=== PATIENT | female | born 1955 | race Hispanic/Latino ===

== ENCOUNTER 2016-12-02 10:22 | Emergency (ER) | payer MEDICARE, OTHER ==
[2016-12-02 10:46] VITALS: BP 104/74; PULSE 84; RESP 19; TEMP 98.1; O2SAT 99; BMI 25.7
--- NOTE | 2016-12-02 10:50 | ED PDOC ---
Arrival/HPI - General Chief Complaint: Eye Problem Time Seen by Provider: 12/02/16 10:49 Historian: Patient - History of Present Illness Narrative History of Present Illness (Text): 12/02/16 10:49 61 y/o female, last tetanus under 5 years ago, wears contact and glassess, c/o lt. eye foreign body sensation x 1 day. Pt. stated that she feels there is foreign body sensation the left eye, feels the contact is still attach to the left eye, been trying to rubbing it and peeling it off, no change in vision, admits tearing, no headache or night sweat, no dizziness, no chest pain or shortness of breath, no other medical or psychological complaints. Past Medical History - Provider Review Nursing Documentation Reviewed: Yes - Infectious Disease Hx of Infectious Diseases: None - Tetanus Immunization Tetanus Immunization: Unknown - Reproductive Menopause: Yes - Past Medical History Past Medical History: No Previous - Cardiac Hx Cardiac Disorders: No - Pulmonary Hx Respiratory Disorders: Yes Hx Asthma: Yes - Neurological Hx Neurological Disorder: No - HEENT Hx HEENT Disorder: No - Renal Hx Renal Disorder: No - Endocrine/Metabolic Hx Endocrine Disorders: No - Hematological/Oncological Hx Blood Disorders: No - Integumentary Hx Dermatological Disorder: No - Musculoskeletal/Rheumatological Hx Musculoskeletal Disorders: Yes Hx Herniated Disk: Yes - Gastrointestinal Hx Gastrointestinal Disorders: No - Genitourinary/Gynecological Hx Genitourinary Disorders: No - Psychiatric Hx Psychophysiologic Disorder: Yes Hx Anxiety: Yes Hx Depression: Yes Hx Emotional Abuse: No Hx Physical Abuse: No Hx Substance Use: No - Surgical History Hx Hysterectomy: Yes Hx Musculoskeletal Surgery: Yes Other/Comment: lap band, herniated disc repair, fibroids removed. - Anesthesia Hx Anesthesia: Yes Hx Anesthesia Reactions: No - Suicidal Assessment Feels Threatened In Home Enviroment: No Family/Social History - Physician Review Nursing Documentation Reviewed: Yes Family/Social History: Unknown Family HX Smoking Status: Current Some Days Smoker Hx Alcohol Use: Yes Frequency of alcohol use: Socially Hx Substance Use: No Allergies/Home Meds Allergies/Adverse Reactions: Allergies No Known Allergies Allergy (Verified 12/02/16 10:33) Home Medications: Home Meds Medication Instructions Recorded Confirmed Alprazolam [Xanax] 4 mg PO TID 11/13/14 12/02/16 Naproxen [Naprosyn] 250 mg PO DAILY 11/13/14 12/02/16 Solifenacin Succinate [Vesicare] 5 mg PO DAILY 11/13/14 12/02/16 Tramadol Hydrochloride [Tramadol] 50 mg PO DAILY 11/13/14 12/02/16 Zolpidem Tartrate [Ambien] 5 mg PO DAILY 11/13/14 12/02/16 Review of Systems - Review of Systems Constitutional: absent: Fatigue, Fevers Eyes: Other (lt. eye tearing and foreign body sensation). absent: Vision Changes, Photophobia ENT: absent: Hearing Changes Respiratory: absent: SOB, Cough Cardiovascular: absent: Chest Pain Gastrointestinal: absent: Abdominal Pain, Diarrhea, Nausea, Vomiting Skin: absent: Rash, Pruritis, Skin Lesions, Laceration, Abscess, Ulcer Psychiatric: absent: Anxiety, Depression, Suicidal Ideation Physical Exam Vital Signs Reviewed: Yes Vital Signs Temp Pulse Resp BP Pulse Ox 12/02/16 10:36 98.1 F 84 19 104/74 99 Temperature: Afebrile Blood Pressure: Normal Pulse: Regular Respiratory Rate: Normal Appearance: Positive for: Well-Appearing, Non-Toxic, Comfortable Pain Distress: None Mental Status: Positive for: Alert and Oriented X 3 - Systems Exam Head: Present: Atraumatic, Normocephalic Pupils: Present: PERRL Extroacular Muscles: Present: EOMI Conjunctiva: Present: Normal, Other (Eyes: bilateral vision with correction 20/ 25, lt. eye with correction 20/25, rt. eye with correction 20/20, +lt. conjunctivitis and noticed to have mild blister from the conjunctiva to the 5 o clock cornea region with no visible foreign bodies or contact noted, no periorbital swelling, rt. eye examined with normal limit, negative luis signs. ) Mouth: Present: Moist Mucous Membranes Neck: Present: Normal Range of Motion Respiratory/Chest: Present: Clear to Auscultation, Good Air Exchange. No: Respiratory Distress, Accessory Muscle Use Cardiovascular: Present: Regular Rate and Rhythm, Normal S1, S2. No: Murmurs Abdomen: Present: Normal Bowel Sounds. No: Tenderness, Distention, Peritoneal Signs Back: Present: Normal Inspection Upper Extremity: Present: Normal Inspection. No: Cyanosis, Edema Lower Extremity: Present: Normal Inspection. No: Edema Neurological: Present: GCS=15, CN II-XII Intact, Speech Normal Skin: Present: Warm, Dry, Normal Color. No: Rashes Psychiatric: Present: Alert, Oriented x 3, Normal Insight, Normal Concentration Medical Decision Making ED Course and Treatment: 12/02/16 10:50 -there is no visible foreign bodies, ciloxin ordered, Dr. Crisostomo paged for consult 12/02/16 11:56 -I spoke to Dr. Crsiostomo about the case and physical examination, he suggest to eyepatch with antibiotic opthalmic ointment which he will see the patient tomorrow morning 9am. -Discharge home with ciloxin, eye patch, take tylenol for pain as needed, you have an appointment with Dr. Crisostomo (opthamologist) tomorrow morning 9am at his office for continue the care, follow up with your own pmd within 2 days, return to the ER for any new or worsening signs or symptoms. - Medication Orders Current Medication Orders: Discontinued Medications Ciprofloxacin (Ciloxan 0.3% Ophth Soln) 2 drop OS STAT STA Stop: 12/02/16 11:22 Last Admin: 12/02/16 11:45 Dose: 2 drop - PA / SURGICAL DENTAL ASSISTANT / Resident Statement MD/DO has reviewed & agrees with the documentation as recorded. Disposition/Present on Arrival - Present on Arrival Any Indicators Present on Arrival: No History of DVT/PE: No History of Uncontrolled Diabetes: No Urinary Catheter: No History of Decub. Ulcer: No History Surgical Site Infection Following: None - Disposition Have Diagnosis and Disposition been Completed?: Yes Diagnosis: Abnormality of cornea Disposition: HOME/ ROUTINE Disposition Time: 10:50 Patient Plan: Discharge Patient Problems: Current Active Problems Problem Status Onset Abnormality of cornea Acute Condition: GOOD Additional Instructions: Discharge home with ciloxin, eye patch, take tylenol for pain as needed, you have an appointment with Dr. Crisostomo (opthamologist) tomorrow morning 9am at his office for continue the care, follow up with your own pmd within 2 days, return to the ER for any new or worsening signs or symptoms. Prescriptions: Ciprofloxacin HCl [Ciloxan] 1 appful OS Q4 #1 tub Referrals: Bacilio Crisostomo MD [Staff Provider] - Follow up with primary [facility] at [facility] [place] [Outside] - Follow up with primary Forms: WORK NOTE
[2016-12-02] MEDS ORDERED: Ciprofloxacin 0.3% OPTH SOLN OS STA (11:21)
== END 2016-12-02 12:24 | disposition home or self-care (01) ==
LOC: ED 10:22
DX: H18.892 Other specified disorders of cornea, left eye (principal)

== ENCOUNTER 2018-09-18 11:31 | Emergency (ER) | payer MEDICARE, OTHER ==
[2018-09-18 11:42] VITALS: BMI 25.0
[2018-09-18 12:10] VITALS: RESP 18
[2018-09-18] MEDS ORDERED: Sodium Chloride 0.9% 1,000 ML IV SCH (12:15)
[2018-09-18] MEDS: Albuterol-Ipratrop 3 mg / 0.5 (3 ml) UD IH SCH ×3 (12:21→13:09)
[2018-09-18 12:25] LABS: BASO # 0.01 K/mm3 (0.0-2.0); BASO % 0.1 % (0.0-3.0); EOS % 0.4 % (1.5-5.0); HEMOGLOBIN 12.8 g/dL (12.0-16.0); LYMPH # 2.2 (1.2-3.4); LYMPH % 22.5 % (22.0-35.0); MEAN CELL VOLUME 93.3 fl (80.0-105.0); MEAN CORPUSCULAR HEMOGLOBIN 30.5 pg (25.0-35.0); MEAN CORPUSCULAR HGB CONC 32.7 g/dl (31.0-37.0); MEAN PLATELET VOLUME 9.8 fl (7.0-11.0); MONO # 0.8 (0.1-0.6); MONO % 8.6 % (1.0-6.0); RBC 4.2 10^6/uL (3.5-6.1); RED CELL DISTRIBUTION WIDTH 13.1 % (11.5-14.5); WHITE BLOOD COUNT 9.6 10^3/uL (4.5-11.0)
--- NOTE | 2018-09-18 12:31 | RAD ---
Date of service: 09/18/2018 HISTORY: cough r/o infiltrate COMPARISON: 12/20/2014 FINDINGS: LUNGS: No active pulmonary disease. PLEURA: No significant pleural effusion identified, no pneumothorax apparent. CARDIOVASCULAR: No aortic atherosclerotic calcification present. Normal cardiac size. No pulmonary vascular congestion. OSSEOUS STRUCTURES: No significant abnormalities. VISUALIZED UPPER ABDOMEN: Normal. OTHER FINDINGS: None. IMPRESSION: No active disease.
[2018-09-18 13:19] LABS: ALB/GLOB RATIO 1.2 (1.1-1.8); ALBUMIN 3.4 g/dL (3.0-4.8); ALT/SGPT 6 U/L (7-56); AST/SGOT 18 U/L (14-36); BLOOD UREA NITROGEN 25 mg/dL (7-21); CALCIUM 9.2 mg/dL (8.4-10.5); GFR NON-AFRICAN AMERICAN > 60
[2018-09-18 13:48] LABS: TROPONIN I 0.01 ng/mL
[2018-09-18 14:41] VITALS: BP 110/74; PULSE 86; O2SAT 98
[2018-09-18 14:56] VITALS: TEMP 98
--- NOTE | 2018-09-18 17:07 | ED PDOC ---
Arrival/HPI - General Chief Complaint: Flu-like Symptoms Historian: Patient - History of Present Illness Narrative History of Present Illness (Text): 09/18/18 17:09 A 63 year old female, whose past medical history includes asthma and menopause, presents to the emergency department complaining of dry cough for 4 days. Patient reports experiencing slight decrease in PO intake and some weakness. States she went to Urgent Care 3 days ago and was prescribed Tamiflu, although she had no testing for flu and no Chest X-ray performed while there. Patient denies any fever, chills, nausea, vomiting, diarrhea, or any other complaints at this time. Denies any recent travel or any recent sick contacts. Time/Duration: < week (4 days) Past Medical History - Provider Review Nursing Documentation Reviewed: Yes - Infectious Disease Hx of Infectious Diseases: None - Tetanus Immunization Tetanus Immunization: Unknown - Reproductive Menopause: Yes - Past Medical History Past Medical History: No Previous - Cardiac Hx Cardiac Disorders: No - Pulmonary Hx Respiratory Disorders: Yes Hx Asthma: Yes - Neurological Hx Neurological Disorder: No - HEENT Hx HEENT Disorder: No - Renal Hx Renal Disorder: No - Endocrine/Metabolic Hx Endocrine Disorders: No - Hematological/Oncological Hx Blood Disorders: No - Integumentary Hx Dermatological Disorder: No - Musculoskeletal/Rheumatological Hx Musculoskeletal Disorders: Yes Hx Herniated Disk: Yes - Gastrointestinal Hx Gastrointestinal Disorders: No - Genitourinary/Gynecological Hx Genitourinary Disorders: No - Psychiatric Hx Psychophysiologic Disorder: Yes Hx Anxiety: Yes Hx Depression: Yes Hx Emotional Abuse: No Hx Physical Abuse: No Hx Substance Use: No - Surgical History Hx Hysterectomy: Yes Hx Musculoskeletal Surgery: Yes Other/Comment: lap band, herniated disc repair, fibroids removed. - Anesthesia Hx Anesthesia: Yes Hx Anesthesia Reactions: No Hx Malignant Hyperthermia: No - Suicidal Assessment Feels Threatened In Home Enviroment: No Family/Social History - Physician Review Nursing Documentation Reviewed: Yes Family/Social History: No Known Family HX Smoking Status: Current Some Days Smoker Hx Alcohol Use: Yes Hx Substance Use: No Allergies/Home Meds Allergies/Adverse Reactions: Allergies No Known Allergies Allergy (Verified 12/02/16 10:33) Home Medications: Home Meds Medication Instructions Recorded Confirmed Alprazolam [Xanax] 4 mg PO TID 11/13/14 09/18/18 Naproxen [Naprosyn] 250 mg PO DAILY 11/13/14 09/18/18 Solifenacin Succinate [Vesicare] 5 mg PO DAILY 11/13/14 09/18/18 Zolpidem Tartrate [Ambien] 5 mg PO DAILY 11/13/14 09/18/18 Fluticasone Propionate [Flovent 50 mcg IH BID 09/18/18 09/18/18 Diskus] Oseltamivir Phosphate [Tamiflu] 75 mg PO BID 09/18/18 09/18/18 Review of Systems - Physician Review All systems were reviewed & negative as marked: Yes - Review of Systems Constitutional: Other (some weakness). absent: Fevers, Night Sweats Respiratory: Cough (dry) Gastrointestinal: Appetite Changes (slight decreased PO intake.). absent: Diarrhea, Nausea, Vomiting Physical Exam Vital Signs Reviewed: Yes Vital Signs Temp Pulse Resp BP Pulse Ox 09/18/18 14:54 98 F 09/18/18 14:40 86 18 110/74 98 09/18/18 11:42 98.1 F 65 18 107/72 95 Temperature: Afebrile Blood Pressure: Normal Pulse: Regular Respiratory Rate: Normal Appearance: Positive for: Well-Appearing, Non-Toxic, Comfortable Pain Distress: None Mental Status: Positive for: Alert and Oriented X 3 - Systems Exam Head: Present: Atraumatic, Normocephalic Pupils: Present: PERRL Extroacular Muscles: Present: EOMI Conjunctiva: Present: Normal Mouth: Present: Moist Mucous Membranes Neck: Present: Normal Range of Motion Respiratory/Chest: Present: Clear to Auscultation, Good Air Exchange. No: Respiratory Distress, Accessory Muscle Use Cardiovascular: Present: Regular Rate and Rhythm, Normal S1, S2. No: Murmurs Abdomen: No: Tenderness, Distention, Peritoneal Signs Back: Present: Normal Inspection Upper Extremity: Present: Normal Inspection. No: Cyanosis, Edema Lower Extremity: Present: Normal Inspection. No: Edema Neurological: Present: GCS=15, CN II-XII Intact, Speech Normal Skin: Present: Warm, Dry, Normal Color. No: Rashes Psychiatric: Present: Alert, Oriented x 3, Normal Insight, Normal Concentration Medical Decision Making ED Course and Treatment: 09/18/18 17:10 Impression: 63 year old female with dry cough, slight decreased PO intake, and some weakness. Physical exam is unremarkable. Plan: -- EKG -- SOLU-Medrol -- IV Fluids -- Chest X-ray -- Reassess and disposition Progress Notes: EKG: Ordered, reviewed, and independently interpreted the EKG. Rate : 67 BPM Rhythm : NSR Interpretation : No ST-segment elevations or depressions, no T-wave inversions, normal intervals. Comparison : No previous EKG for comparison. 09/18/2018 12:30 Chest X-ray IMPRESSION: No active disease. Dictator: Patrick Hook MD 09/18/18 17:22 Upon re-evaluation, patient states she feels better and will follow-up with PMD. - Lab Interpretations Lab Results: Troponin I 0.01 ng/mL 09/18/18 12:01 Total Bilirubin 0.4 mg/dL (0.2-1.3) 09/18/18 12:01 AST 18 U/L (14-36) 09/18/18 12:01 ALT 6 U/L (7-56) L 09/18/18 12:01 Alkaline Phosphatase 50 U/L (38-126) 09/18/18 12:01 Total Protein 6.3 g/dL (5.8-8.3) 09/18/18 12:01 Albumin 3.4 g/dL (3.0-4.8) 09/18/18 12:01 Globulin 2.9 gm/dL 09/18/18 12:01 Albumin/Globulin Ratio 1.2 (1.1-1.8) 09/18/18 12:01 I have reviewed the lab results: Yes - RAD Interpretation Radiology Orders: 09/18/18 12:01 CHEST PORTABLE [RAD] Stat - Medication Orders Current Medication Orders: Discontinued Medications Albuterol/Ipratropium (Duoneb 3 Mg/0.5 Mg (3 Ml) Ud) 3 ml IH Q15M KRISTIN Stop: 09/18/18 12:46 Last Admin: 09/18/18 13:09 Dose: 3 ml Sodium Chloride (Sodium Chloride 0.9%) 1,000 mls @ 100 mls/hr IV .Q10H KRISTIN Last Admin: 09/18/18 12:25 Dose: 100 mls/hr eMAR Start Stop Document 09/18/18 12:25 RC (Rec: 09/18/18 12:25 [id number]) Intravenous Solution Start Date 09/18/18 Start Time 12:25 Methylprednisolone (Solu-Medrol) 125 mg IVP STAT STA Stop: 09/18/18 12:02 Last Admin: 09/18/18 12:24 Dose: 125 mg IVP Administration Document 09/18/18 12:24 RC (Rec: 09/18/18 12:24 [id number]) Charges for Administration # of IVP Administrations 1 - Scribe Statement The provider has reviewed the documentation as recorded by the Mariano Montero Provider Scribe Attestation: All medical record entries made by the Nataliiaibarias were at my direction and personally dictated by me. I have reviewed the chart and agree that the record accurately reflects my personal performance of the history, physical exam, medical decision making, and the department course for this patient. I have also personally directed, reviewed, and agree with the discharge instructions and disposition. Disposition/Present on Arrival - Present on Arrival Any Indicators Present on Arrival: No History of DVT/PE: No History of Uncontrolled Diabetes: No Urinary Catheter: No History of Decub. Ulcer: No History Surgical Site Infection Following: None - Disposition Have Diagnosis and Disposition been Completed?: Yes Diagnosis: Viral syndrome Disposition: HOME/ ROUTINE Disposition Time: 13:55 Condition: IMPROVED Discharge Instructions (ExitCare): Viral Syndrome (DC) Additional Instructions: MAYCO CHAVIRA, thank you for letting us take care of you today. The emergency medical care you received today was directed at your acute symptoms. If you wer e prescribed any medication, please fill it and take as directed. It may take several days for your symptoms to resolve. Return to the Emergency Department if your symptoms worsen, do not improve, or if you have any other problems. Please contact your doctor or call one of the physicians/clinics you have been referred to that are listed on the Patient Visit Information form that is included in your discharge packet. Bring any paperwork you were given at discharge with you along with any medications you are taking to your follow up visit. Our treatment cannot replace ongoing medical care by a primary care provider outside of the emergency department. Thank you for allowing the [facility] team to be part of your care today. Continue taking the Tamiflu until completed. Drink fluids throughout the day to maintain hydration. Follow up with your primary care doctor in 2-3 days for re-evaluation and further management. Prescriptions: predniSONE [Prednisone] 40 mg PO DAILY #10 tab Referrals: Clemente Leyva MD [Family Provider] - Follow up with primary Forms: [employer] (Welsh)
--- NOTE | 2018-09-18 22:39 | CARD ---
APPROVED REPORT Date of service: 09/18/2018 EKG Measurement Heart [id number] <Conclusion> Normal sinus rhythm Normal ECG
== END 2018-09-18 14:54 | disposition home or self-care (01) ==
LOC: ED 11:31
DX: B34.9 Viral infection, unspecified (principal)
CPT/HCPCS: 71045; 80053; 82550; 83615; 83735; 84484; 85025; 93005; 96374; 99283; J2930; J7030

== ENCOUNTER 2018-11-22 09:51 | Outpatient (CLI) | payer MEDICARE, OTHER | END 2018-11-22 09:52 | disposition home or self-care (01) | LOC: RAD 09:51 ==